=== PATIENT | male | born 1930 | race Caucasian/White ===

== ENCOUNTER 2019-07-21 05:47 | Emergency (ER) | payer BC ==
[~2019-07-21] VITALS: Ht 177.8 cm; Wt 90.7 kg
[2019-07-21 05:47] VITALS: BP_SYST 149
[2019-07-21] MEDS ORDERED: NACL 0.9% 1,000 ML IV ONE ×2 (06:00→07:30)
[2019-07-21 06:32] LABS: BASOPHILS % (AUTO) 0.2 % (0.0-2.0); EOSINOPHILS # (AUTO) 0.1 K/uL (0.0-0.4); EOSINOPHILS % (AUTO) 0.8 % (0.0-4.0); HEMATOCRIT 39.1 % (36-54); HEMOGLOBIN 12.8 g/dL (14.0-18.0); LYMPHOCYTES # (AUTO) 0.8 K/uL (1.0-5.5); LYMPHOCYTES % (AUTO) 7.5 % (20.5-51.5); MEAN CORPUSCULAR HEMOGLOBIN 31 pg (27-31); MEAN CORPUSCULAR HGB CONC 33 % (32-36); MEAN CORPUSCULAR VOLUME 94 fL (79.0-98.0); MONOCYTES % (AUTO) 8.7 % (1.7-9.3); NEUTROPHILS # (AUTO) 9.2 K/uL (1.8-7.7); NEUTROPHILS % (AUTO) 82.8 % (40.0-70.0); PLATELET COUNT (AUTO) 197 K/uL (130-430); RED BLOOD CELL COUNT(AUTO) 4.18 MIL/uL (4.2-6.2); RED CELL DISTRIBUTION WIDTH 14.2 % (9.0-15.0); WHITE BLOOD COUNT (AUTO) 11.1 K/uL (4.8-10.8)
[2019-07-21 06:52] LABS: INR 1.1 (0.80-1.20); PROTHROMBIN TIME 11.5 SECS (9.5-12.5)
[2019-07-21 06:55] LABS: ALANINE AMINOTRANSFERASE 26 U/L (12-78); ALBUMIN 3.9 g/dL (3.4-4.8); ANION GAP 7 (5-15); ASPARTATE AMINOTRANSFERASE 27 U/L (10-37); CALCIUM 9.3 mg/dL (8.4-11.0); CHLORIDE 101 mmol/L (98-107); CREATININE 1.05 mg/dL (0.55-1.30); GLUCOSE 124 mg/dL (70-99); POTASSIUM 4.2 mmol/L (3.5-5.1); SODIUM SERUM 139 mmol/L (136-145); TOTAL BILIRUBIN 0.3 mg/dL (0.0-1.0); UREA NITROGEN, BLOOD 24 mg/dL (8-21)
[2019-07-21 08:10] LABS: BILIRUBIN,URINE NEGATIVE (NEGATIVE); BLOOD, URINE NEGATIVE (NEGATIVE); CLARITY/URINE CLEAR (CLEAR); COLOR,URINE YELLOW (YELLOW); GLUCOSE,URINE NEGATIVE (NEGATIVE); KETONES,URINE NEGATIVE (NEGATIVE); LEUKOCYTE ESTERASE ,URINE NEGATIVE (NEGATIVE); NITRITE, URINE NEGATIVE (NEGATIVE); PH,URINE 5.5 (5.0-8.0); PROTEIN URINE NEGATIVE (NEGATIVE); UROBILINOGEN,URINE 0.2 (0.2-1.0)
[2019-07-21] MEDS ORDERED: fentaNYL CITRATE/PF 100 MCG/2 ML AMP IVP ONE ×2 (08:45→09:00)
[2019-07-21 15:55] VITALS: BP_SYST 143
== END 2019-07-21 15:55 ==
LOC: SED 05:47
DX: R53.1 Weakness (principal); Z86.73 Personal history of transient ischemic attack (TIA), and cerebral infarction without residual deficits; Z95.0 Presence of cardiac pacemaker; W07.XXXA Fall from chair, initial encounter; Y93.89 Activity, other specified; Y92.091 Bathroom in other non-institutional residence as the place of occurrence of the external cause; Y99.8 Other external cause status
CPT/HCPCS: 36415; 70450; 71045; 72100; 80053; 81003; 83605; 84484; 85025; 85610; 85730; 86710; 87040; 87081; 87086; 93005; 96374; 99285; J3010; J7030

== ENCOUNTER 2019-08-19 14:54 | Inpatient (IN) | payer BC ==
[~2019-08-19] VITALS: Ht 177.8 cm; Wt 88.0 kg
[2019-08-19 15:47] VITALS: BP_SYST 106
--- NOTE | 2019-08-19 15:51 | NUR ---
Patient to ER bed 08 to gown for evaluation. Side rails up.
--- NOTE | 2019-08-19 15:55 | NUR ---
ER Dr. Vega at bedside examining patient.
--- NOTE | 2019-08-19 15:55 | NUR ---
Patient brought to bed 8 in wheelchair. Patient fell out of bed this morning at [facility]. Patient denies loss of consciousness or hitting his head. Patient is experiencing lower back pain on his left side. Patient rates his pain a 2 out of 10. Will continue to monitor.
--- NOTE | 2019-08-19 16:02 | NUR ---
# 20 gauge angiocath placed to RAC. Use of asceptic technique. Opsite placed over site. Blood return noted. Blood, blood cultures, and lactic for lab drawn from site. Flushed with 10 cc of normal saline. No evidence of infiltration noted. Patient tolerated well.
[2019-08-19] MEDS ORDERED: AMLO5TAB4 PO (16:46)
[2019-08-19] MEDS ORDERED: LOSA25TA3 PO (16:46)
[2019-08-19] MEDS ORDERED: LIP40 PO (16:46)
[2019-08-19] MEDS ORDERED: METO25TA6 PO (16:46)
[2019-08-19] MEDS ORDERED: METF1000 PO (16:46)
[2019-08-19] MEDS ORDERED: ASPI-1153 PO (16:46)
[2019-08-19] MEDS ORDERED: ACET325T53 PO (16:47)
[2019-08-19] MEDS ORDERED: OMEG10006 PO (16:47)
--- NOTE | 2019-08-19 16:48 | NUR ---
Medication reconciliation completed with information provided by patient healthcare partners list. Any prior medication reconciliation on file was reviewed and corrected.
[2019-08-19 17:40] LABS: BASOPHILS % (AUTO) 0.2 % (0.0-2.0); HEMATOCRIT 34.2 % (36-54); HEMOGLOBIN 11.3 g/dL (14.0-18.0); LYMPHOCYTES # (AUTO) 0.6 K/uL (1.0-5.5); LYMPHOCYTES % (AUTO) 3.3 % (20.5-51.5); MEAN CORPUSCULAR HEMOGLOBIN 31 pg (27-31); MEAN CORPUSCULAR HGB CONC 33 % (32-36); MEAN CORPUSCULAR VOLUME 94 fL (79.0-98.0); MONOCYTES # (AUTO) 1.9 K/uL (0.0-1.0); NEUTROPHILS # (AUTO) 16.8 K/uL (1.8-7.7); NEUTROPHILS % (AUTO) 86.5 % (40.0-70.0); PLATELET COUNT (AUTO) 201 K/uL (130-430); RED BLOOD CELL COUNT(AUTO) 3.64 MIL/uL (4.2-6.2); RED CELL DISTRIBUTION WIDTH 14.7 % (9.0-15.0); WHITE BLOOD COUNT (AUTO) 19.4 K/uL (4.8-10.8)
[2019-08-19 17:50] LABS: ANION GAP 10 (5-15); CALCIUM 8.8 mg/dL (8.4-11.0); CHLORIDE 103 mmol/L (98-107); CREATININE 2.06 mg/dL (0.55-1.30); GLUCOSE 134 mg/dL (70-99); POTASSIUM 4.6 mmol/L (3.5-5.1); SODIUM SERUM 139 mmol/L (136-145); UREA NITROGEN, BLOOD 45 mg/dL (8-21)
[2019-08-19] MEDS ORDERED: cefTRIAXone 1 GM in D5W 50 ML IV ONE (18:00)
[2019-08-19 18:10] LABS: BILIRUBIN,URINE 1+ (NEGATIVE); CLARITY/URINE SL CLOUDY (CLEAR); COLOR,URINE YELLOW (YELLOW); GLUCOSE,URINE NEGATIVE (NEGATIVE); KETONES,URINE NEGATIVE (NEGATIVE); LEUKOCYTE ESTERASE ,URINE 1+ (NEGATIVE); NITRITE, URINE NEGATIVE (NEGATIVE); PH,URINE 5.5 (5.0-8.0); PROTEIN URINE TRACE (NEGATIVE)
--- NOTE | 2019-08-19 18:26 | NUR ---
Blood cultures drawn, prior to administration of antibiotic.
[2019-08-19] MEDS ORDERED: cefTRIAXone 1 GM VIAL ONE (18:33)
--- NOTE | 2019-08-19 18:45 | NUR ---
Patient's code status is DNR WITH SELECTIVE TREATMENT paperwork completed and placed in chart.
[2019-08-19 18:49] LABS: BLOOD, URINE TRACE (NEGATIVE)
[2019-08-19 18:54] LABS: BACTERIA,URINE MODERATE /HPF (None Seen)
[2019-08-19 18:56] LABS: MUCUS,URINE None Seen /LPF (None Seen)
[2019-08-19] MEDS ORDERED: NACL 0.9% 2,000 ML IV ONE (19:30)
--- NOTE | 2019-08-19 20:01 | NUR ---
Patient will be admitted to care of Dr. Copeland. Admitted to [facility] unit. Bed placement pending. Complete and up to date summary report printed. SBAR report to be given at bedside with opportunity for questions.
--- NOTE | 2019-08-19 20:44 | NUR ---
Son, Preston, went home. His phone number is .
--- NOTE | 2019-08-19 20:44 | NUR ---
Note nelida in EDM - 08/19/19 at 2213 by SDEDCJM 2 liters of normal saline infused. Patient reports he is feeling better. Appears to be more alert. Temperature now is 100.6. Will continue to monitor.
[2019-08-19] MEDS ORDERED: ACETAMINOPHEN 325 MG TABLET PO ONE (21:00)
[2019-08-19] MEDS ORDERED: ONDANSETRON HCL 4 MG/2 ML VIAL IVP ONE (21:00)
--- NOTE | 2019-08-19 21:00 | NUR ---
Patient awaiting bed placement. Temperature is 101.7 temporal. Cooling measures started. MD notified. Tylenol 650 mg ordered and carried out. will continue to monitor. Patient now showing Severe sepsis risk. notified.
--- NOTE | 2019-08-19 21:44 | NUR ---
2 liters of normal saline infused. Patient reports he is feeling better. Appears to be more alert. Temperature now is 100.6. Will continue to monitor.
[2019-08-19] MEDS ORDERED: ONDANSETRON HCL 4 MG/2 ML VIAL IVP PRN (22:15)
[2019-08-19] MEDS ORDERED: ACETAMINOPHEN 325 MG TABLET PO PRN ×2 (22:15)
[2019-08-19] MEDS ORDERED: ALBUTEROL SULFATE 0.083% 2.5 MG/3 ML VIAL.NEB INH PRN (22:15)
--- NOTE | 2019-08-19 22:43 | NUR ---
REPORT GIVEN TO BECKA SEAMAN. Transfer to [facility]. IV present no sign or symptom of infiltration. PATIENT WILL BE GOING TO [facility].
--- NOTE | 2019-08-19 22:54 | NUR ---
ADMISSION NOTE Received patient from ER via leticia, received report from BECKA Gutierrez. Patient admitted with diagnosis of UTI, back pain. Patient oriented to hospital routine, call light, toileting and safety-patient verbalized understanding.
[2019-08-19 23:03] VITALS: BP_SYST 95
[2019-08-19 23:43] VITALS: BP_SYST 95
[2019-08-20] VITALS (17 sets, daily range): BP systolic 72–130
[2019-08-20] MEDS: NACL 0.9% 1,000 ML IV SCH ×2 (00:13→11:25)
--- NOTE | 2019-08-20 00:35 | NUR ---
SLEEPING PT RESTING IN BED WITH EYES CLOSED, VISIBLE SYMMETRICAL RISE AND FALL OF CHEST TO ROOM AIR NOTED. NO SIGN OF PAIN OR DISCOMFORT. IVF INFUSING AT ORDERED RATE. SAFETY PRECAUTIONS ARE IN PLACE. WILL MONITOR.
--- NOTE | 2019-08-20 02:30 | NUR ---
RN ROUNDS: PT RESTING IN BED WITH EYES CLOSED, VISIBLE SYMMETRICAL RISE AND FALL OF CHEST TO ROOM AIR NOTED. NO SIGN OF PAIN OR DISCOMFORT. IVF INFUSING AT ORDERED RATE. SAFETY PRECAUTIONS ARE IN PLACE. WILL MONITOR.
--- NOTE | 2019-08-20 04:15 | NUR ---
DR. MOORE ROUNDS PT SEEN AND EXAMINED.
[2019-08-20] MEDS ORDERED: PIPERACILLIN/TAZO 3.375/DEX-IS 50 ML IV SCH (05:21)
--- NOTE | 2019-08-20 05:24 | NUR ---
INCONTINENCE CARE PT INCONTINENT OF URINE. INCONTINENCE CARE RENDERED. PT TOLERATED WELL. PT DENIES PAIN OR DISCOMFORT. ALL NEEDS MET. SAFETY MAINTAINED. WILL MONITOR.
--- NOTE | 2019-08-20 06:08 | NUR ---
ACCUCHECK/ZOSYN SCHEDULED ZOSYN ADMINISTERED, NO S/S OF ADVERSE REACTION NOTED. ACCUCHECK SHOWED BLOOD SUGAR OF 126, NO INSULIN COVERAGE INDICATED PER SLIDING SCALE.
[2019-08-20] MEDS ORDERED: PIPERACILLIN/TAZOBACTAM 3.375 GM/VIAL (ZOSYN) IV ONE (06:10)
[2019-08-20 06:27] LABS: BASOPHILS % (AUTO) 0.3 % (0.0-2.0); HEMATOCRIT 28.3 % (36-54); HEMOGLOBIN 9.3 g/dL (14.0-18.0); LYMPHOCYTES # (AUTO) 0.3 K/uL (1.0-5.5); LYMPHOCYTES % (AUTO) 1.8 % (20.5-51.5); MEAN CORPUSCULAR HEMOGLOBIN 31 pg (27-31); MEAN CORPUSCULAR HGB CONC 33 % (32-36); MEAN CORPUSCULAR VOLUME 94 fL (79.0-98.0); MONOCYTES # (AUTO) 1.2 K/uL (0.0-1.0); MONOCYTES % (AUTO) 6.4 % (1.7-9.3); NEUTROPHILS # (AUTO) 17.6 K/uL (1.8-7.7); NEUTROPHILS % (AUTO) 91.5 % (40.0-70.0); PLATELET COUNT (AUTO) 145 K/uL (130-430); RED BLOOD CELL COUNT(AUTO) 3.02 MIL/uL (4.2-6.2); RED CELL DISTRIBUTION WIDTH 14.7 % (9.0-15.0); WHITE BLOOD COUNT (AUTO) 19.2 K/uL (4.8-10.8)
--- NOTE | 2019-08-20 06:33 | NUR ---
CLOSING NOTE PT RESTING IN BED, NO S/S OF DISTRESS, BREATHING IS EVEN AND UNLABORED TO ROOM AIR. IVF INFUSING AT ORDERED RATE, NO S/S OF INFILTRATION AT IV SITE. PT DENIES PAIN OR DISCOMFORT. ALL NEEDS MET THROUGHOUT SHIFT. SAFETY MAINTAINED. WILL CONTINUE TO MONITOR UNTIL PT CARE IS ENDORSED TO DAY SHIFT RN.
[2019-08-20 06:39] LABS: ALANINE AMINOTRANSFERASE 25 U/L (12-78); ALBUMIN 2.4 g/dL (3.4-4.8); ANION GAP 10 (5-15); ASPARTATE AMINOTRANSFERASE 23 U/L (10-37); CALCIUM 8.4 mg/dL (8.4-11.0); CHLORIDE 105 mmol/L (98-107); GLUCOSE 139 mg/dL (70-99); POTASSIUM 4.2 mmol/L (3.5-5.1); SODIUM SERUM 138 mmol/L (136-145); TOTAL BILIRUBIN 0.4 mg/dL (0.0-1.0); UREA NITROGEN, BLOOD 41 mg/dL (8-21)
--- NOTE | 2019-08-20 07:15 | NUR ---
OPENING NOTES PT RESTING IN BED, CHEST RISE AND FALL NOTED. NO ACUTE DISTRESS NOTED. NONLABORED BREATHING NOTED ON ROOM AIR. IV LINES INTACT AND PATENT, NO SIGNS OF INFILTRATION NOTED. PT EASY TO WAKE UP, DENIES PAIN AT THIS TIME. BED LOCKED AND IN LOWEST POSITION. ALL NEEDS MET. CALL LIGHT IN REACH. CONTINUE TO MONITOR.
--- NOTE | 2019-08-20 08:30 | NUR ---
NASAL CANNULA PT ON NASAL CANNULA 2LPM ADMINISTERED BY RT. TOLERATING WELL, O2 AT 97%. ALL NEEDS MET. CALL LIGHT IN REACH. CONTINUE TO MONITOR.
[2019-08-20] MEDS: ASPIRIN 81 MG TABLET(ECOTRIN) PO SCH ×2 (09:00→09:15)
[2019-08-20] MEDS: amLODIPine BESYLATE 5 MG TABLET PO SCH ×2 (09:00→09:15)
[2019-08-20] MEDS ORDERED: cefTRIAXone 1 GM IVPB PREMIX 50 ML IV SCH (09:00)
[2019-08-20] MEDS: METOPROLOL TARTRATE 25 MG TABLET PO SCH ×3 (09:00→20:21)
--- NOTE | 2019-08-20 09:12 | NUR ---
Nutrition Update Dieudonne Scale 18 noted. Pt admitted for UTI/back pain. Diet: [facility] BMI: 28 kg/m2 RD to follow per nutrition care standards.
--- NOTE | 2019-08-20 09:30 | NUR ---
MEDS/ UPDATE ON PT PT IS ANSWERING SOME QUESTIONS, BUT NOT ANSWERING APPROPRIATELY. PT OPENING EYES. WILL NOT STATE NAME AND . VITAL SIGNS STABLE. ATTEMPTED TO PUT FOOD IN MOUTH, PT POCKETING FOOD, WILL NOT TAKE MEDICATIONS. PAGED . AWAITING CALL BACK.
--- NOTE | 2019-08-20 09:48 | NUR ---
ASSESSED ATTEMPTED TO GIVE MEDICATIONS TO PT, STILL UNABLE TO SWALLOW. EDUCATED PT, VERBALIZED UNDERSTANDING, BUT STILL UNABLE TO SWALLOW MEDS. ATTEMPTED TO FEED PT, BUT PT POCKETING FOOD. CHECKED BLOOD SUGAR. BLOOD SUGAR IS 168 MG/DL. PT ABLE TO STATE NAME, UNABLE TO STATE . VITAL SIGNS STABLE. AWAITING CALL BACK FROM .
--- NOTE | 2019-08-20 10:15 | NUR ---
SPOKE TO DR. MCKEON AT NURSE'S STATION. UPDATED MD ON PT'S STATUS. STATED THAT HE WILL SEE PT AT BEDSIDE. Addendum: 08/20/19 at 1050 by Little Weston RN UPDATED DR. MCKEON THAT PT IS ANSWERING SOME QUESTIONS, BUT WILL ANSWER INAPPROPRIATELY AT TIMES. PT IS POCKETING FOOD AND UNABLE TO SWALLOW MEDICATIONS. UPDATED DR. MCKEON ON PT'S LATEST LAB RESULTS WELL.
[2019-08-20] MEDS: INSULIN REGULAR, HUMAN 100 UNITS/ML, 10 ML VIAL (humuLIN R) SUBCUT PRN ×3 (11:54→20:51)
--- NOTE | 2019-08-20 11:55 | NUR ---
ACCUCHECK DONE ACCUCHECK DONE, EDUCATION DONE, TOLERATED WELL. RESULT 158 MG/DL. HELD INSULIN DUE TO PT BEING UNABLE TO SWALLOW FOOD. PT ANSWERING SOME QUESTIONS APPROPRIATELY AND NOT ANSWERING SOME. STATES NAME, BUT DOES NOT RESPOND TO STATING . DR. ASHLEY CALLED FOR CONSULT.
--- NOTE | 2019-08-20 11:57 | NUR ---
CONSULT: CONSULT CALLED FOR DR. LLOYD I SPOKE WITH BORA FROM EXCHANGE REASON FOR CONSULT: SEPSIS REQUESTING CONSULT: DR. MCKEON FLOOR SCRAPER PHONE NUMBER: [phone]
[2019-08-20] MEDS ORDERED: VANCOMYCIN HCL 1,000 MG in NS 250 ML IV SCH (13:00)
--- NOTE | 2019-08-20 13:14 | NUR ---
ROUNDS/RE-ASSESS PT AWAKE. PT LOCALIZING TO PAIN, LIFTS UP ARM. ANSWERS ALL QUESTIONS WITH "NO." WHEN ASKED TO STATE NAME AND , CONTINUES TO ANSWER "NO." VITAL SIGNS STABLE. WHEN ASKED TO OPEN EYES, PT CONTINUE TO SAY "NO." CALL LIGHT IN REACH. CONTINUE TO MONITOR.
--- NOTE | 2019-08-20 14:01 | NUR ---
ROUTINE MEDS ROUTINE MEDS ADMINISTERED ORDERED PER MD, EDUCATION GIVEN, TOLERATED WELL. NO ACUTE DISTRESS NOTED. ALL NEEDS MET. CALL LIGHT IN REACH. PT LOCALIZES TO PAIN. PT STATES NAME, BUT SPEECH IS GARBLED. WILL NOT ANSWER DATE OF . PT CONTINUES TO NOT OPEN HIS EYES. VITAL SIGNS STABLE. CONTINUE TO MONITOR.
[2019-08-20] MEDS: PIPERACILLIN/TAZO 2.25G/DEX-IS 50 ML IV SCH ×2 (15:09→22:06)
[2019-08-20] MEDS ORDERED: NACL 0.9% 1,000 ML IV ONE (15:30)
--- NOTE | 2019-08-20 15:33 | NUR ---
ORDERS FOR TRANSFER TO ICU PT AWAKE, BUT LETHARGIC. RESPONDING TO QUESTIONS INAPPROPRIATELY. SPEECH GARBLED. DOES NOT OPEN EYES ON COMMAND. LOCALIZES TO PAIN. PT HAS DECREASED BLOOD PRESSURE, ON LEFT ARM 77/34, ON RIGHT ARM 80/47. SPOKE TO DR. MCKEON, RECEIVED ORDERS TO ADMINISTER 1L OF NORMAL SALINE AND TRANSFER PT TO ICU. ORDERS VERIFIED AND CARRIED OUT. CONTINUE TO MONITOR.
--- NOTE | 2019-08-20 16:08 | NUR ---
TRANSFER TO ICU GAVE REPORT TO BECKA HOUGH. MOVED TO ICU ROOM 3. SPOKE TO PT'S SON, JO AND UPDATED HIM ON PT'S STATUS AND TRANSFER TO ICU.
--- NOTE | 2019-08-20 16:09 | NUR ---
Opening Note Patient received from information operator and placed in ICU 3. 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 Patient BP upon arrival is 72/32. Patient currently receiving 1L NS, BP at this time 96/47. Patient on 2L oxygen via nasal cannula breathing evenly and unlabored. Patient lethargic but is able to respond to simple commands. Patient with peripheral IV's. Patient incontinent. Safety precautions enforced.
--- NOTE | 2019-08-20 16:19 | NUR ---
PAGED PAGED MARYLIN BLAND AT [phone] SPOKE WITH LIAM.
--- NOTE | 2019-08-20 16:54 | NUR ---
CONSULTATION PAGED: PRIORITY: ROUTINE REASON FOR CONSULTATION:HYPOTENSION WAS CONSULT CALLED:Y PERSON WHO WAS NOTIFIED:[facility]CH[facility] CONSULTING PHYSICIAN:MILAD BENSON IMPROVEMENT MANAGER SPECIALTY:PULMARY IMPROVEMENT MANAGER PHONE NUMBER:[phone] CELL NUMBER OF MILAD BENSON
--- NOTE | 2019-08-20 17:04 | NUR ---
BEAR CATH: # 16 FR Bear catheter with 10 cc bulb inserted with use of sterile technique. Bulb inflated with 10 cc sterile water. Immediate return of 20 cc sujit urine noted. Bedside drainage bag placed below level of bladder. Pt tolerated procedure well.
[2019-08-20] MEDS ORDERED: ALBUMIN HUMAN 5% 500 ML IV ONE (18:15)
--- NOTE | 2019-08-20 19:35 | NUR ---
Opening Note Patient received via SBAR, connected to electronic device monitor with 1st degree block; patient with pacemaker. Patient BP upon arrival is 111/48. Patient currently receiving NS, levophed @ 2mcg/min. Patient on 2L oxygen via nasal cannula breathing evenly and unlabored. Patient is able to respond to commands and is aware of person, place, time and situation. Patient with peripheral IV's. Patient incontinent. Safety precautions enforced.
--- NOTE | 2019-08-20 19:40 | NUR ---
Closing Note Patient endorsed to manufacturing shift supervisor RN using SBAR format. Patient in no signs of distress at this time.
[2019-08-20] MEDS ORDERED: LEVOFLOXACIN 500 MG/D5W 100 ML IV SCH (20:00)
[2019-08-20] MEDS: ATORVASTATIN 20 MG TABLET PO SCH (20:38)
[2019-08-21] VITALS (24 sets, daily range): BP systolic 94–146
[2019-08-21] MEDS: NACL 0.9% 1,000 ML IV SCH ×3 (03:02→20:08)
--- NOTE | 2019-08-21 05:30 | NUR ---
CHG BATH Patient received CHG bath, new gown, new linens, a teeth brushing with mouth wash, and repositioning.
[2019-08-21] MEDS: PIPERACILLIN/TAZO 2.25G/DEX-IS 50 ML IV SCH ×3 (05:50→22:40)
--- NOTE | 2019-08-21 07:26 | NUR ---
Closing Note Patient endorsed to night filler RN using SBAR format. Patient in no signs of distress at this time.
--- NOTE | 2019-08-21 07:33 | NUR ---
Opening Note Patient received resting in bed at this time and is connected to social director. Patient more awake and is able to respond to commands. Patient on 2L oxygen via nasal cannula breathing evenly and unlabored, no signs of distress noted. Patient has multiple peripheral IV receiving fluids. Patient has a bhat catheter draining urine. Safety precautions enforced.
--- NOTE | 2019-08-21 08:50 | NUR ---
RN Update Patient complaining of chills and is currently shivering. Patient heart rate increased to the 130s. Patient temperature 97.4 at this time. Patient able to respond to questions and able to follow commands. Paged MD to report patient condition change.
[2019-08-21] MEDS: METOPROLOL TARTRATE 25 MG TABLET PO SCH ×2 (09:00→20:48)
[2019-08-21] MEDS: amLODIPine BESYLATE 5 MG TABLET PO SCH (09:00)
[2019-08-21] MEDS: ASPIRIN 81 MG TABLET(ECOTRIN) PO SCH (09:00)
[2019-08-21] MEDS ORDERED: ALBUMIN HUMAN 5% 250 ML IV ONE (09:15)
--- NOTE | 2019-08-21 09:15 | NUR ---
MD Rounds Dr. Vega at bedside for examination. New orders received.
--- NOTE | 2019-08-21 09:30 | NUR ---
MD Rounds Dr. Copeland at bedside for examination. No new orders received.
[2019-08-21 10:02] LABS: ANION GAP 16 (5-15); CALCIUM 8.5 mg/dL (8.4-11.0); CHLORIDE 108 mmol/L (98-107); CREATININE 2.39 mg/dL (0.55-1.30); GLUCOSE 128 mg/dL (70-99); POTASSIUM 3.8 mmol/L (3.5-5.1); SODIUM SERUM 143 mmol/L (136-145); UREA NITROGEN, BLOOD 48 mg/dL (8-21)
[2019-08-21 10:08] LABS: ALANINE AMINOTRANSFERASE 39 U/L (12-78); ALBUMIN 2.4 g/dL (3.4-4.8); TOTAL BILIRUBIN 0.5 mg/dL (0.0-1.0)
[2019-08-21 10:14] LABS: ASPARTATE AMINOTRANSFERASE 41 U/L (10-37)
--- NOTE | 2019-08-21 11:15 | NUR ---
MD Rounds Dr. Domingo at bedside for examination. New orders received. MD updated family regarding patient condition.
[2019-08-21 11:16] LABS: HEMATOCRIT 31.3 % (36-54); HEMOGLOBIN 10.1 g/dL (14.0-18.0); MEAN CORPUSCULAR HEMOGLOBIN 31 pg (27-31); MEAN CORPUSCULAR HGB CONC 32 % (32-36); MEAN CORPUSCULAR VOLUME 94 fL (79.0-98.0); PLATELET COUNT (AUTO) 118 K/uL (130-430); RED BLOOD CELL COUNT(AUTO) 3.32 MIL/uL (4.2-6.2); RED CELL DISTRIBUTION WIDTH 15.3 % (9.0-15.0)
[2019-08-21 11:17] LABS: BASOPHILS % (AUTO) 0.1 % (0.0-2.0); EOSINOPHILS % (AUTO) 0.5 % (0.0-4.0); LYMPHOCYTES # (AUTO) 0.1 K/uL (1.0-5.5); LYMPHOCYTES % (AUTO) 0.9 % (20.5-51.5); MONOCYTES % (AUTO) 0.4 % (1.7-9.3); NEUTROPHILS # (AUTO) 5.9 K/uL (1.8-7.7); NEUTROPHILS % (AUTO) 98.1 % (40.0-70.0)
--- NOTE | 2019-08-21 11:20 | NUR ---
Reported lab values to Dr. Domingo. modified antibiotic orders.
--- NOTE | 2019-08-21 11:30 | NUR ---
ODD TICKET CLERK met with Pt. and family at bedside, for ICU News Writer contact and tentative DCPA ([facility]). Daughter Mabel Winn [phone] , consent was given to speak with family present. Person to notify and DPAO is reportedly son Preston Holland who resides locally. Pt. is currently a resident at [facility] assisted living in [place], he has been at this facility since 03/2019, client would prefer to return to this. Pt utilizes an electric scooter for mobility, and is reportedly is moderate assists with his ADLs. [facility] [place], however, he was residing home prior to transfer to [facility]. Pt. has [facility]- [facility] is managing Pt. care, family is aware of this matter. Tentative DC plan is to return to [facility]. No further inquiry at this time.
[2019-08-21] MEDS: LEVOFLOXACIN 250 MG/D5W 50 ML IV SCH (11:51)
[2019-08-21] MEDS: NOREPINEPHRINE BITARTRATE 4 MG in D5W 246 ML IV PRN ×2 (15:22→20:20)
--- NOTE | 2019-08-21 19:16 | NUR ---
ORDERS CALLED DR. LLOYD EXCHANGE DIALED: [phone] SPOKE TO: DIVYA
--- NOTE | 2019-08-21 19:32 | NUR ---
Closing Note Patient endorsed to retail shift leader RN using SBAR format. Patient is responsive but noted to be weak. Safety precautions enforced.
--- NOTE | 2019-08-21 19:50 | NUR ---
Opening Note Pt in bed alert but slightly confused. Pt ST on the monitor. On 4L O2, no s/s of distress noted. Pt has IVF and levophed infusing through peripheral IV sites. No s/s of infiltration noted. Pt tolerating well. BP stable. Pt has bhat catheter in place, draining minimal urine to gravity. Safety round completed. Will continue to monitor.
--- NOTE | 2019-08-21 20:17 | NUR ---
CONSULT CALLED [facility]CHANGE DIALED: [phone] SPOKE TO: SACHA
--- NOTE | 2019-08-21 20:20 | NUR ---
MD Called Spoke w/ Dr. Lawler regarding new MD consult. Made aware of Pt status, HR and BP. No new orders received. Will continue to monitor.
--- NOTE | 2019-08-21 20:38 | NUR ---
ORDERS FOLLOW UP DR. LLOYD DIALED: [phone] SPOKE TO: SAURABH
--- NOTE | 2019-08-21 20:47 | NUR ---
DR GABINO Domingo notified regarding the need for increase in IV fluids due to sepsis. Orders received. Increase NS to 100 ML/HR.
[2019-08-21] MEDS: ATORVASTATIN 20 MG TABLET PO SCH (20:56)
[2019-08-21] MEDS: INSULIN REGULAR, HUMAN 100 UNITS/ML, 10 ML VIAL (humuLIN R) SUBCUT PRN (21:02)
[2019-08-22] VITALS (26 sets, daily range): BP systolic 85–125
--- NOTE | 2019-08-22 01:20 | NUR ---
RN Round Pt in bed, asleep. No s/s of distress noted. Will continue to monitor.
--- NOTE | 2019-08-22 05:15 | NUR ---
RN Rounds Pt in bed asleep. No s/s of distress noted. Pt BP stable, levophed infusing @2mcg/min. Will continue to monitor.
--- NOTE | 2019-08-22 06:10 | NUR ---
CHG CHG bath given and linens changed. Pt tolerated well, but became SOB towards the end. PRN breathing Tx given. Will continue to monitor.
[2019-08-22] MEDS: PIPERACILLIN/TAZO 2.25G/DEX-IS 50 ML IV SCH ×2 (06:53→14:20)
--- NOTE | 2019-08-22 07:22 | NUR ---
Endorsement Report given to oncoming RN at bedside via SBAR approach. No s/s of distress noted. Pt AAO.
[2019-08-22] MEDS: amLODIPine BESYLATE 5 MG TABLET PO SCH (09:00)
[2019-08-22] MEDS: METOPROLOL TARTRATE 25 MG TABLET PO SCH ×2 (09:00→19:30)
[2019-08-22] MEDS: ASPIRIN 81 MG TABLET(ECOTRIN) PO SCH (09:15)
[2019-08-22] MEDS: LEVOFLOXACIN 250 MG/D5W 50 ML IV SCH (09:15)
[2019-08-22 09:29] LABS: HEMATOCRIT 27.6 % (36-54); HEMOGLOBIN 8.8 g/dL (14.0-18.0); MEAN CORPUSCULAR HEMOGLOBIN 30 pg (27-31); MEAN CORPUSCULAR HGB CONC 32 % (32-36); MEAN CORPUSCULAR VOLUME 94 fL (79.0-98.0); PLATELET COUNT (AUTO) 111 K/uL (130-430); RED BLOOD CELL COUNT(AUTO) 2.94 MIL/uL (4.2-6.2); RED CELL DISTRIBUTION WIDTH 15.6 % (9.0-15.0); WHITE BLOOD COUNT (AUTO) 27.4 K/uL (4.8-10.8)
[2019-08-22 09:37] LABS: ANION GAP 13 (5-15); CALCIUM 8.3 mg/dL (8.4-11.0); CHLORIDE 106 mmol/L (98-107); CREATININE 3.22 mg/dL (0.55-1.30); GLUCOSE 146 mg/dL (70-99); POTASSIUM 3.7 mmol/L (3.5-5.1); SODIUM SERUM 138 mmol/L (136-145); UREA NITROGEN, BLOOD 54 mg/dL (8-21)
[2019-08-22 09:43] LABS: INR 1.5 (0.80-1.20); PROTHROMBIN TIME 14.8 SECS (9.5-12.5)
--- NOTE | 2019-08-22 10:00 | NUR ---
Paged for Dr. Ochoa about EF 25-50%, spoke with Crystal to leave message/page.
[2019-08-22 10:40] LABS: BAND % (MANUAL) 20 % (0-6); BASOPHILS % (MANUAL) 0 % (0-2); EOSINOPHILS % (MANUAL) 0 % (0-7); LYMPHOCYTES % (MANUAL) 1 % (20-46); MONOCYTES % (MANUAL) 2 % (0-11)
--- NOTE | 2019-08-22 10:50 | NUR ---
0730-Received patient awake alert oriented. With ongoing IVF NS at 50 ml/hr and levophed drip at 2mcq/min. BP 110/42 On O2 4 liters nasal cannula O2 saturation 100% HOB at 30 degrees. With bhat catheter to gravity drainage with clear yellow output and securement device. With blanchable redness to sacral area and left buttock ecchymosis. Skin moisture barrier cream placed with absorbent pad in place. Fall precaution done. Call light within reach. 0810-Made rounds with Dr Yuan and Dr Copeland at the bedside. Was notified of patients condition, urine output, BP with new orders carried out 0822-BP 95/58 Levophed drip off continue to monitor 0900-BP 103/59 Continue to monitor 1030-BP 85/70 Levophed drip restarted at 2mcq/min Continue to monitor. O2 saturation 100% on O2 2 liters nasal cannula 1050-Dr Yuan was notified of patients lab results. No new orders. Paged to Min and Dr Domingo awaiting reply. BP 100/55
--- NOTE | 2019-08-22 11:17 | NUR ---
Page out to Dr. Copeland, spoke with exchange Rupal.
--- NOTE | 2019-08-22 11:30 | NUR ---
Made rounds with Dr Ochoa plan of care discussed with patient verbalized understanding
[2019-08-22] MEDS: INSULIN REGULAR, HUMAN 100 UNITS/ML, 10 ML VIAL (humuLIN R) SUBCUT PRN ×2 (11:49→16:36)
[2019-08-22] MEDS: NACL 0.9% 1,000 ML IV SCH (14:23)
--- NOTE | 2019-08-22 14:35 | NUR ---
Dietitian Recommendations * Recommend [facility] diet w/ Glucedson TID (ONS provides an additional 660 kcal/day, 30 gm protein/day) LAKESHA ANDREWS Please refer to Nutrition Assessment for details. Addendum: 08/22/19 at [address] Amended: Links added.
--- NOTE | 2019-08-22 15:21 | NUR ---
Spoke with Dr Copeland notified of lab results today, Ecoli,ESBL and MDRO in blood and urine. Dr Domingo was paged awaiting reply. Spoke with Mari (exchange) regarding consult for Dr Leiva for BUN [address] Copeland was notified patient able to swallow soft food only. With new orders for swallow eval. Addendum: 08/22/19 at 1546 by Agueda Jenkins RN Spoke with Dr Copeland notified of lab results today, Ecoli,ESBL and MDRO in blood and urine. Dr Domingo was paged awaiting reply. Spoke with Mari (exchange) regarding consult for Dr Leiva for BUN [address] Copeland was notified patient able to swallow soft food only. With new orders for swallow eval. Contact precaution done
--- NOTE | 2019-08-22 15:23 | NUR ---
Contacted speech therapist for eval, left message.
--- NOTE | 2019-08-22 16:37 | NUR ---
Spoke with Dr Leiva and notified of patient condition. UA sent as ordered.
--- NOTE | 2019-08-22 16:39 | NUR ---
Dr Domingo was notified of urine and blood culture results. Awaiting new orders
[2019-08-22 16:47] LABS: BILIRUBIN,URINE NEGATIVE (NEGATIVE); BLOOD, URINE 2+ (NEGATIVE); CLARITY/URINE CLEAR (CLEAR); COLOR,URINE YELLOW (YELLOW); GLUCOSE,URINE NEGATIVE (NEGATIVE); KETONES,URINE NEGATIVE (NEGATIVE); NITRITE, URINE NEGATIVE (NEGATIVE); PROTEIN URINE 1+ (NEGATIVE); UROBILINOGEN,URINE 0.2 (0.2-1.0)
[2019-08-22 17:06] LABS: LEUKOCYTE ESTERASE ,URINE TRACE (NEGATIVE)
[2019-08-22 17:07] LABS: BACTERIA,URINE FEW /HPF (None Seen); MUCUS,URINE None Seen /LPF (None Seen); WBC,URINE NONE SEEN /HPF (0-3)
[2019-08-22] MEDS: NOREPINEPHRINE BITARTRATE 4 MG in D5W 246 ML IV PRN (17:37)
--- NOTE | 2019-08-22 18:36 | NUR ---
With right PICC line in place dressing clean dry intact. Right AC and right forearm peripheral IV was discontinued catheter intact
--- NOTE | 2019-08-22 19:02 | NUR ---
Right PICC line dressing clean dry intact. Repositioned every 2 hours. Oral care done. Brushed teeth. Skin moisture barrier cream placed to perisacral area with absorbent pad in place. O2 saturation 100% On O2 2 liters nasal cannula With ongoing Renal US as ordered. Report given to Jarrod JOVEL at the bedside
--- NOTE | 2019-08-22 19:30 | NUR ---
Opening Note Patient report recieved via SBAR communiation from endorsing RN
--- NOTE | 2019-08-22 20:00 | NUR ---
PM Assessment Patient is alert and oriented times 3. Patient on 2L O2 via NC; breath sounds are diminished throughout; weak, productive cough present. S1, S2 heart sounds with regular rate, Pace maker present, 1st degree hb on monitor, +2 pitting edema noted on lower extremities; Patient on levophed drip at 2mcg/min. Bowel sounds are active and present in all quadrants. Pablo catheter draining to gravity, securement device in place, yellow urine present in collection bag. Skin is warm, dry; blanchable redness on sacrum and ecchymosis on left hip. Bed is in lowest position, bed alarm on, call light within reach. Addendum: 08/23/19 at 0216 by Jarrod Lowe RN PICC present in right upper arm, area/dressing is clean, dry, and intact.
[2019-08-22] MEDS: MEROPENEM 500 MG IVPB PREMIX 50 ML IV SCH (20:17)
[2019-08-22] MEDS: ATORVASTATIN 20 MG TABLET PO SCH (20:33)
--- NOTE | 2019-08-22 23:00 | NUR ---
Nursing Note Patient repositioned in bed, patient tolerated well
[2019-08-23] VITALS (25 sets, daily range): BP systolic 98–126
--- NOTE | 2019-08-23 01:00 | NUR ---
Nursing Note Patient repositioned in bed, patient given oral care as requested. Patient tolerated well
--- NOTE | 2019-08-23 03:00 | NUR ---
Nursing Note Patient repositioned in bed as requested, patient suctioned via oral cavity, small amount of sputum removed, patient tolerated well.
--- NOTE | 2019-08-23 05:00 | NUR ---
Nursing Note Patient given CHG bath, linens changed, gown changed, patient repositioned in bed. Patient tolerated well
[2019-08-23] MEDS: NACL 0.9% 1,000 ML IV SCH (06:23)
[2019-08-23 06:26] LABS: BASOPHILS % (AUTO) 0.1 % (0.0-2.0); EOSINOPHILS # (AUTO) 0.1 K/uL (0.0-0.4); EOSINOPHILS % (AUTO) 0.4 % (0.0-4.0); HEMATOCRIT 30.1 % (36-54); HEMOGLOBIN 9.7 g/dL (14.0-18.0); LYMPHOCYTES # (AUTO) 0.3 K/uL (1.0-5.5); LYMPHOCYTES % (AUTO) 1.1 % (20.5-51.5); MEAN CORPUSCULAR HEMOGLOBIN 30 pg (27-31); MEAN CORPUSCULAR HGB CONC 32 % (32-36); MEAN CORPUSCULAR VOLUME 94 fL (79.0-98.0); MONOCYTES # (AUTO) 0.8 K/uL (0.0-1.0); MONOCYTES % (AUTO) 3.3 % (1.7-9.3); NEUTROPHILS # (AUTO) 23.6 K/uL (1.8-7.7); NEUTROPHILS % (AUTO) 95.1 % (40.0-70.0); PLATELET COUNT (AUTO) 115 K/uL (130-430); RED BLOOD CELL COUNT(AUTO) 3.22 MIL/uL (4.2-6.2); RED CELL DISTRIBUTION WIDTH 15.7 % (9.0-15.0); WHITE BLOOD COUNT (AUTO) 24.8 K/uL (4.8-10.8)
[2019-08-23 06:56] LABS: ALANINE AMINOTRANSFERASE 92 U/L (12-78); ALBUMIN 2.1 g/dL (3.4-4.8); ANION GAP 12 (5-15); ASPARTATE AMINOTRANSFERASE 85 U/L (10-37); CALCIUM 8.5 mg/dL (8.4-11.0); CHLORIDE 108 mmol/L (98-107); GLUCOSE 124 mg/dL (70-99); POTASSIUM 3.7 mmol/L (3.5-5.1); SODIUM SERUM 139 mmol/L (136-145); TOTAL BILIRUBIN 0.5 mg/dL (0.0-1.0); UREA NITROGEN, BLOOD 63 mg/dL (8-21)
--- NOTE | 2019-08-23 07:10 | NUR ---
Closing Note Patient report given to oncoming RN via SBAR communication
--- NOTE | 2019-08-23 07:10 | NUR ---
Shift report received from daniel Aragon RN using SBAR.
--- NOTE | 2019-08-23 08:30 | NUR ---
Dr Yuan bedside. Updated on current labs and condition.
--- NOTE | 2019-08-23 08:45 | NUR ---
AM ASSESSMENT PT A/O x 4, Afib on monitor, noted cloudy urine in Pablo. PT had no complains of pain or discomfort. Pt stated he is unable to swallow solid food. Ordered Glucerna drink and pt was able to tolerate without aspirating. NS running at 50cc/hr. PICC line clear and noted blood return. No signs of infection. Bed locked and in lowest position with call light in hand.
[2019-08-23] MEDS: ASPIRIN 81 MG TABLET(ECOTRIN) PO SCH (08:58)
[2019-08-23] MEDS: MEROPENEM 500 MG IVPB PREMIX 50 ML IV SCH ×2 (08:59→20:34)
[2019-08-23] MEDS: amLODIPine BESYLATE 5 MG TABLET PO SCH (08:59)
[2019-08-23] MEDS: METOPROLOL TARTRATE 25 MG TABLET PO SCH ×2 (08:59→20:34)
--- NOTE | 2019-08-23 09:00 | NUR ---
AM Oral care provided. Pt tolerated well.
--- NOTE | 2019-08-23 09:40 | NUR ---
Dr Leiva [facility]. Urology consult given with CT w/o contrast. Addendum: 08/23/19 at 1113 by Eric Carney RN Second sentence should state Urology consult given along with orders for CT W/O contrast.
--- NOTE | 2019-08-23 10:00 | NUR ---
NPO Placed PT on NPO pending swallow evaluation. Pt expressed he is having a hard time swallowing food.
--- NOTE | 2019-08-23 10:30 | NUR ---
Consult Called exchange per Crystal for urology consult. Physicians Furniture Repairer MARNI called stating his group does not cover HCP.
--- NOTE | 2019-08-23 10:40 | NUR ---
Paged Dr Rodriguez for urology consult recommendations.
--- NOTE | 2019-08-23 10:48 | NUR ---
Paged Dr. Rodriguez for orders. Spoke with exchange.
--- NOTE | 2019-08-23 10:51 | NUR ---
Dr Rodriguez called back. Provided report of PT. stated he will find out which group is covered under HCP and will callback.
--- NOTE | 2019-08-23 11:20 | NUR ---
Dr Michael garcia. Provided status update and received consult Physician's name for urology.
--- NOTE | 2019-08-23 11:21 | NUR ---
New consult paged to Dr. Rios, spoke with exchange.
--- NOTE | 2019-08-23 11:30 | NUR ---
Called Jeanette Hanna for urology consult. Left message on the answering machine for consult. [phone]
--- NOTE | 2019-08-23 12:41 | NUR ---
Dr Jimenez called back, provided update on pt. stated to call back after CT Scan.
--- NOTE | 2019-08-23 13:15 | NUR ---
CT Uneventful transfer to radiology dept. and back. PT on night monitor and 2L O2. Pt tolerated well.
--- NOTE | 2019-08-23 14:10 | NUR ---
Swallow Evaluation Brianne bedside to perform swallow evaluation.
--- NOTE | 2019-08-23 14:15 | NUR ---
Called Dr Jimenez with preliminary results for CT scan. recommended surgery for stent placement and removal of renal stones. stated he will call back and set up for surgery.
--- NOTE | 2019-08-23 14:30 | NUR ---
Informed PT of surgical intervention recommended by Dr Jimenez. Pt stated he did not want to have surgery or any surgical interventions that will prolong his life.
--- NOTE | 2019-08-23 14:41 | NUR ---
S.T. SWALLOW EVAL SWALLOW EVAL PERFORMED PARTIALLY. PT PRESENTS W/ FUNCTIONAL OROPHARYNGEAL SWALLOW FOR THIN LIQUIDS. ONLY THIN LIQUID WAS GIVEN. EVAL STOPPED PER PHYSICIAN D/T POSSIBLE PENDING SURGERY. REC: OK FOR CLEAR LIQUID DIET AND THIN LIQUIDS WHEN MEDICALLY CLEARED. CONSIDER F/U SWALLOW EVAL FOR DIET UPGRADE. NURSES ITALO AND NIMO NOTIFIED.
--- NOTE | 2019-08-23 15:45 | NUR ---
Dr Jimenez bedside with pt and pt son on telephone. Dr Jimenez explained in detail for surgical intervention and explained thoroughly for informed consent, risks, and possible outcomes. PT and son stated they understood the risks and noted they do not want the surgical intervention. Dr. Jimenez reiterated multiple times of the potential for if the surgical intervention is not completed.
--- NOTE | 2019-08-23 19:20 | NUR ---
OPENING NOTE SBAR REPORT RECEIVED BY ITALO JOVEL. CARE ASSUMED. PT LAYING IN BED ANO X4. PT ON 2L NASAL CANNULA. O2 SATURATION 100%. PT ATRIAL FIBRILLATION ON MONITOR. PT HAS RIGHT UPPER EXTREMITY PICC LINE RUNNING NORMAL SALINE AT 50 ML/HR. RADIAL AND PEDAL PULSES NORMAL. 1+ PITTING EDEMA TO BILATERAL LOWER EXTREMITIES. ABDOMEN SOFT NON DISTENDED. BOWEL SOUNDS ACTIVE. PT NPO. PT REFUSED SURGERY PT WILL BE ADVANCED TO CLEAR LIQUID DIET. BEAR CATHETER FLOWING TO GRAVITY IN PLACE. URINE YELLOW AND CLOUDY. REDDENING TO SACRAL AREA. BRUISING TO LEFT BUTTOCKS. SKIN INTACT. BED LOCKED IN LOWEST POSITION. CALL LIGHT WITHIN REACH. SAFETY PRECAUTIONS IN PLACE. WILL CONTINUE TO MONITOR.
--- NOTE | 2019-08-23 19:25 | NUR ---
Endorsement given to Milagros JOVEL using SBAR.
[2019-08-23] MEDS: ATORVASTATIN 20 MG TABLET PO SCH (20:34)
[2019-08-24] VITALS (21 sets, daily range): BP systolic 96–149
[2019-08-24 05:33] LABS: BASOPHILS % (AUTO) 0.2 % (0.0-2.0); EOSINOPHILS # (AUTO) 0.1 K/uL (0.0-0.4); EOSINOPHILS % (AUTO) 0.3 % (0.0-4.0); HEMATOCRIT 30.8 % (36-54); LYMPHOCYTES # (AUTO) 0.4 K/uL (1.0-5.5); LYMPHOCYTES % (AUTO) 2.7 % (20.5-51.5); MEAN CORPUSCULAR HEMOGLOBIN 30 pg (27-31); MEAN CORPUSCULAR HGB CONC 32 % (32-36); MEAN CORPUSCULAR VOLUME 93 fL (79.0-98.0); MONOCYTES % (AUTO) 5.9 % (1.7-9.3); NEUTROPHILS # (AUTO) 14.8 K/uL (1.8-7.7); NEUTROPHILS % (AUTO) 90.9 % (40.0-70.0); PLATELET COUNT (AUTO) 107 K/uL (130-430); RED BLOOD CELL COUNT(AUTO) 3.33 MIL/uL (4.2-6.2); RED CELL DISTRIBUTION WIDTH 15.5 % (9.0-15.0); WHITE BLOOD COUNT (AUTO) 16.3 K/uL (4.8-10.8)
[2019-08-24 05:50] LABS: ALANINE AMINOTRANSFERASE 74 U/L (12-78); ANION GAP 12 (5-15); ASPARTATE AMINOTRANSFERASE 44 U/L (10-37); CALCIUM 8.3 mg/dL (8.4-11.0); CHLORIDE 110 mmol/L (98-107); CREATININE 3.27 mg/dL (0.55-1.30); GLUCOSE 114 mg/dL (70-99); PHOSPHORUS 3.5 mg/dL (2.7-4.5); POTASSIUM 3.8 mmol/L (3.5-5.1); SODIUM SERUM 141 mmol/L (136-145); TOTAL BILIRUBIN 0.5 mg/dL (0.0-1.0); UREA NITROGEN, BLOOD 72 mg/dL (8-21)
[2019-08-24 06:05] LABS: C-REACTIVE PROTEIN QUANT 14.4 mg/dL (0-0.5)
[2019-08-24 06:25] LABS: ERYTHROCYTE SEDIMENTATION RATE 102 MM/HR (0-15)
--- NOTE | 2019-08-24 07:15 | NUR ---
Opening Note Received bedside report from endorsing RN for continuation of care. Received patient awake and resting in bed, denies any SOB or pain. No signs or symptoms of acute distress noted. Bed locked in lowest position, bed alarm on, and call light within reach. Fall and safety precautions in place.
--- NOTE | 2019-08-24 07:30 | NUR ---
Dr. Jimenez at bedside examining patient. No new orders.
[2019-08-24] MEDS: amLODIPine BESYLATE 5 MG TABLET PO SCH (08:36)
[2019-08-24] MEDS: ASPIRIN 81 MG TABLET(ECOTRIN) PO SCH (08:36)
[2019-08-24] MEDS: MEROPENEM 500 MG IVPB PREMIX 50 ML IV SCH ×2 (08:36→21:44)
[2019-08-24] MEDS: METOPROLOL TARTRATE 25 MG TABLET PO SCH ×2 (08:36→21:34)
--- NOTE | 2019-08-24 08:48 | NUR ---
Paged Dr. Rodriguez for orders. Spoke with exchange.
[2019-08-24] MEDS: TAMSULOSIN HCL 0.4 MG CAP PO SCH ×2 (09:00→09:54)
--- NOTE | 2019-08-24 09:20 | NUR ---
Code status changed DNR Dr. Yuan and pt discussing pt's wish to be DNR and comfortable without aggressive measures. Signed and placed in chart.
--- NOTE | 2019-08-24 09:26 | NUR ---
Dr. Yuan at bedside examining patient. New orders received. Addendum: 08/24/19 at 0926 by Berna Fields RN No new orders.
[2019-08-24] MEDS: TAMSULOSIN HCL 0.4 MG CAP PO ONE ×2 (09:54→09:59)
--- NOTE | 2019-08-24 11:46 | NUR ---
Dr. Rodriguez at bedside examining patient. New orders received.
--- NOTE | 2019-08-24 13:25 | NUR ---
Dr. Leiva at bedside examining patient. No new orders.
--- NOTE | 2019-08-24 14:55 | NUR ---
Flexboard Operator: Received Dr. Walton orders for hospice eval. for a [facility] pt. in ICU3. SPEECH LANGUAGE PATHOLOGIST PRN called and left a message for both HCP CMs' Kandi- [phone] and Roman at [phone]. Both CMs have not called SPEECH LANGUAGE PATHOLOGIST PRN back. SPEECH LANGUAGE PATHOLOGIST PRN met with the family briefly and shared some hospice resources including [facility]. SPEECH LANGUAGE PATHOLOGIST PRN explained to them someone from HCP will be giving them a call and confirmed their contact info. SPEECH LANGUAGE PATHOLOGIST PRN called both HCP CM and left the contact info. SPEECH LANGUAGE PATHOLOGIST PRN will remain available as needed.
--- NOTE | 2019-08-24 15:15 | NUR ---
Dr. Kang at bedside examining patient. No new orders.
[2019-08-24] MEDS: NACL 0.9% 1,000 ML IV SCH (15:25)
--- NOTE | 2019-08-24 18:44 | NUR ---
Transfer to Telemetry Patient transferred to telemetry unit room 101-A on continuous monitoring analyst and oxygen using ACLS protocol. ACLS RN present at all times. No signs or symptoms of acute distress noted. Endorsed bedside report to Emely BONE RN using SBAR approach for continuation of care.
--- NOTE | 2019-08-24 19:04 | NUR ---
[facility] INITIAL ADMISSION NOTES RECEIVED PATIENT FROM ICU TRANSFER FROM [facility] , PLACED IN BED , ALERT , VERBALLY RESPONSIVE AND ABLE TO ANSWER QUESTION , MADE COMFORTABLE WITH IV INFUSING TO LEELA PICC LINE X 2 LUMEN , INTACT NO SIGN OF BLEEDING , WITH BEAR CATH INTACT DRAINING WITH YELLOW URINE OUTPUT, PATIENT ADMINISTERED WITH O2 VIA NC AND PATIENT DENIES ANY PAIN AT THIS TIME AND AWARE OF HIS CONDITION , ENDORSED TO DOOR TO DOOR SELLING DISTRIBUTOR PATIENT HAD SIGNED DNR, AND FAMILY IS OK TO VISIT TOMORROW , WILL CONT CARE Addendum: 08/24/19 at 1910 by Emely Galindo RN ENDORSED TO [facility] WITH STABLE CONDITION
--- NOTE | 2019-08-24 20:00 | NUR ---
AWAKE, ALERT. CONFUSED AT TIMES. ONO2 AT 2L/MIN/NC. WHEEZING NOTED. SEEMS ANXIOUS AND AFRAID, THINKS HE MIGHT FALL. SIDE RAILS UP, CALL LIGHTS WITHIN REACH, REASSURED, ENCOURAGED TO VERBALIZE FEELINGS. MONITORED CLOSELY.
--- NOTE | 2019-08-24 21:00 | NUR ---
BOUTS OF CONFUSION. REORIENTED TO REALITY. SCARED. REASSURED. ACCU-CHEK 137, NO INSULIN DUE PER SLIDING SCALE COV. TRANSFERRED TO ROOM 105-A, NEARER TO NURSING STATION.
[2019-08-24] MEDS: ATORVASTATIN 20 MG TABLET PO SCH (21:35)
[2019-08-24] MEDS: INSULIN REGULAR, HUMAN 100 UNITS/ML, 10 ML VIAL (humuLIN R) SUBCUT PRN (21:47)
--- NOTE | 2019-08-25 00:30 | NUR ---
DOZES ON AND OFF. 1 MODERATE WATERY BROWNISH STOOL DEFECATED. CLEANED. VANDANA-CARE, BACK CARE, SKIN CARE RENDERED. PARTIAL LINEN CHANGE. MINIMAL ASSIST WITH TURNING. FIDEL WELL.
[2019-08-25] MEDS: NACL 0.9% 1,000 ML IV SCH ×2 (01:09→21:50)
--- NOTE | 2019-08-25 04:45 | NUR ---
wants to get out of bed. explained that it is not a good idea at this time. 1 mod watery brown stool defcated, cleaned. mamie-care given. z-guard applied to perineum. partial linen change. assists with turning. chas proc well.
[2019-08-25] MEDS: INSULIN REGULAR, HUMAN 100 UNITS/ML, 10 ML VIAL (humuLIN R) SUBCUT PRN (06:17)
--- NOTE | 2019-08-25 07:02 | NUR ---
Nutrition Update Dieudonne Scale 16 noted. Pt admitted for UTI, back pain Diet: Clear liquid BMI: 27.8 kg/m2 RD to follow per nutrition care standards.
[2019-08-25 07:04] LABS: BASOPHILS % (AUTO) 0.2 % (0.0-2.0); EOSINOPHILS % (AUTO) 0.1 % (0.0-4.0); HEMATOCRIT 31.6 % (36-54); HEMOGLOBIN 10.2 g/dL (14.0-18.0); LYMPHOCYTES # (AUTO) 0.3 K/uL (1.0-5.5); LYMPHOCYTES % (AUTO) 1.9 % (20.5-51.5); MEAN CORPUSCULAR HEMOGLOBIN 30 pg (27-31); MEAN CORPUSCULAR HGB CONC 32 % (32-36); MEAN CORPUSCULAR VOLUME 93 fL (79.0-98.0); MONOCYTES # (AUTO) 1.3 K/uL (0.0-1.0); MONOCYTES % (AUTO) 7.4 % (1.7-9.3); NEUTROPHILS # (AUTO) 16.4 K/uL (1.8-7.7); NEUTROPHILS % (AUTO) 90.4 % (40.0-70.0); PLATELET COUNT (AUTO) 94 K/uL (130-430); RED BLOOD CELL COUNT(AUTO) 3.39 MIL/uL (4.2-6.2); RED CELL DISTRIBUTION WIDTH 15.6 % (9.0-15.0); WHITE BLOOD COUNT (AUTO) 18.1 K/uL (4.8-10.8)
[2019-08-25 07:08] LABS: ALANINE AMINOTRANSFERASE 69 U/L (12-78); ALBUMIN 2.1 g/dL (3.4-4.8); ANION GAP 14 (5-15); ASPARTATE AMINOTRANSFERASE 45 U/L (10-37); C-REACTIVE PROTEIN QUANT 10.3 mg/dL (0-0.5); CHLORIDE 110 mmol/L (98-107); CREATININE 2.97 mg/dL (0.55-1.30); GLUCOSE 130 mg/dL (70-99); PHOSPHORUS 3.5 mg/dL (2.7-4.5); POTASSIUM 3.6 mmol/L (3.5-5.1); SODIUM SERUM 145 mmol/L (136-145); TOTAL BILIRUBIN 0.7 mg/dL (0.0-1.0); UREA NITROGEN, BLOOD 67 mg/dL (8-21)
[2019-08-25 07:48] VITALS: BP_SYST 111
[2019-08-25 08:00] VITALS: BP_SYST 111
--- NOTE | 2019-08-25 08:00 | NUR ---
INITIAL NOTES Awake, lying in bed. Oriented to person time and place. Blood pressure is stable at this time. Eats breakfast. IVF is infusing well. Minimal swelling on both legs. Redness noted on sacral area but skin is intact. Updated with plan of care. Safety and fall precautions in place. Will monitor.
[2019-08-25] MEDS: MEROPENEM 500 MG IVPB PREMIX 50 ML IV SCH ×2 (08:16→21:49)
[2019-08-25] MEDS: TAMSULOSIN HCL 0.4 MG CAP PO SCH (08:17)
[2019-08-25] MEDS: ASPIRIN 81 MG TABLET(ECOTRIN) PO SCH (08:18)
[2019-08-25] MEDS: METOPROLOL TARTRATE 25 MG TABLET PO SCH ×2 (08:18→21:49)
[2019-08-25] MEDS: amLODIPine BESYLATE 5 MG TABLET PO SCH (09:00)
[2019-08-25 09:34] LABS: ERYTHROCYTE SEDIMENTATION RATE 95 MM/HR (0-15)
--- NOTE | 2019-08-25 10:30 | NUR ---
CXRAY Patient initially refused to have chest x-ray. Finally agreed after speaking to family member.
--- NOTE | 2019-08-25 11:36 | NUR ---
BOWEL MOVEMENT Soft medium bowel movement noted. Cleaned and repositioned. Denies any pain. No shortness of breath.
[2019-08-25 12:00] VITALS: BP_SYST 107
--- NOTE | 2019-08-25 12:20 | NUR ---
Blood culture- pt refusing blood draw at this time. Instructed patient the importance of drawing blood, but still refusing. Will try again later.
--- NOTE | 2019-08-25 12:32 | NUR ---
Dr. prieto made aware that patient is refusing blood culture draw.
--- NOTE | 2019-08-25 12:43 | NUR ---
Nutrition F/U RD reviewed pt's current EMR including diet Hx, physician notes, nursing notes, pertinent labs/meds/procedures, care trends and care activity. Current Diet Order: Clear liquid diet Subjective information: Per RN report, pt is awake and alert, tolerated food items in clear liquid diet except for the jello. Pending swallow eval and hospice eval. Last BM 08/24 x 3. Per MD notes, family does not want intervention for renal stone. Per EMR, PO intake 10-25% of meals. +Septicemia, ID following. BG trending up. Labs: 08/24 Na 145WNL, K 3.6WNL, BG 130H, POC BG 134H, BUN 67H, CRE 2.97H Current PO intake: 10-25% of meals Estimated Energy Expenditure (kcals/day) 3543-6574 kcal/day (MSJ x 1.2-1.5 CBW for sepsis) Estimated Protein Required (g/day) 132-176 gm/day (1.5-2 gm/kg CBW for sepsis) Estimated Fluid Required (l/day) 2.2-2.6 L/day (25-30 ml/kg CBW for geriatric maintenance) Problem/Etiology/Signs/Symptoms Increased nutritional needs related to metabolic demands as evidenced by elevated WBC lab value and estimated nutritional requirements for sepsis. *ongoing Altered nutrition-related labs r/t endocrine and renal dysfunction AEB elevated BG, POC BG, BUN and SCre lab values. (*new 08/25/2019) Expected Outcomes/Goals - Monitor advancement of diet, appetite and PO intakes w/ goal of pt meeting at least 75% of estimated nutritional needs, labs trending WNL, normal GI function, and skin integrity/wt maintenance Dietitian Recommendations * Continue clear liquid diet per FREIGHT HANDLER. * Awaiting swallow re-eval. * Advance diet if/when medically appropriate per FREIGHT HANDLER after re-eval. Follow Up High Risk: F/U in 2-3days
--- NOTE | 2019-08-25 12:52 | NUR ---
Dietitian Recommendations * Continue clear liquid diet per SECURITY ASSISTANT. * Awaiting swallow re-eval. * Advance diet if/when medically appropriate per SECURITY ASSISTANT after re-eval. Please see Nutrition F/U note for details. LAKESHA ALVARADO
--- NOTE | 2019-08-25 15:00 | NUR ---
Asleep. Family at bedside. Son wants to know about possible transfer to hospice. Will call behavioral health case manager.
--- NOTE | 2019-08-25 15:14 | NUR ---
Called Health Admissions Representative therapeutic case manager Kandi about update of hospice eval. Left voicemail.
--- NOTE | 2019-08-25 15:50 | NUR ---
Spoke to Kandi from [facility]. Said that she is not the sample case porter environmental air specialist today. Said to call number [phone]. Left voicemail. Patient's son is aware.
--- NOTE | 2019-08-25 16:26 | NUR ---
4:36pm: Spoke with Amarilis from [facility] and confirmed receiving fax. States that a nurse will be able to evaluate pt around 5pm, dtr-in-law aware. Also, requesting for recent Progress notes to be faxed, Ida Black RN aware. 4:11pm: Spoke to [facility] regarding faxing over to [facility] documents needed. Dtr-in-law aware. 3:55pm: Spoke with Jennifer and stated that they do not want pt to go to a SNF and would want pt to go under [facility]. Called [facility] and gave fax number [phone]. 1:45pm: Left Preston, son, and Jennifer, dtr-in-law, to return call regarding d/c plan for pt. Awaiting for call back.
[2019-08-25 16:31] VITALS: BP_SYST 109
--- NOTE | 2019-08-25 16:51 | NUR ---
Faxed needed documents to Joan at [phone].
--- NOTE | 2019-08-25 18:21 | NUR ---
CLOSING NOTES Awake, lying in bed. Eats dinner. Family at bedside. IVF infusing well. Denies any shortness of breath or pain. All needs met throughout shift. Still waiting for hospice nurse to come and evaluate patient. Will endorse.
--- NOTE | 2019-08-25 19:20 | NUR ---
OPENING NOTE RECEIVED REPORT FROM DANIAL RN, PATIENT IS RESTING IN BED, A/OX3, FAMILY AT BEDSIDE, NO SIGNS OF ACUTE DISTRESS, EVEN AND UNLABORED BREATHING ON 2L NC, NO COMPLAINTS OF PAIN, PICC TO RIGHT UPPER ARM INTACT, INFUSING NS @50ML/HR, PATENT/BENIGN, BEAR CATHETER IN PLACE AND DRAINING TO GRAVITY. SAFETY, FALL AND ASPIRATION PRECAUTIONS IN PLACE, CONTACT ISOLATION PRECAUTIONS IN PLACE, BED LOCKED AND IN LOWEST POSITION, BED ALARM ON, THREE SIDE RAILS UP, BED CLOSE TO NURSING STATION, CALL LIGHT WITH PATIENT, WILL CONTINUE TO MONITOR.
--- NOTE | 2019-08-25 19:50 | NUR ---
HOSPICE NURSE AT BEDSIDE HOSPICE NURSE MARCIO AT BEDSIDE EVALUATING AND DISCUSSING CARE WITH PATIENT'S DAUGHTER IN LAW. MARCIO MADE AWARE OF PATIENT'S STATUS AND AGREED PATIENT MAY GO TO [facility], SHE VERBALIZED PATIENT MAY BE TRANSFERRED AT 10AM PENDING [facility] AMBULANCE AVAILABILITY. SHE ALSO VERBALIZED IF PATIENT CAN BE TRANSFERRED WITH PICC LINE HEP LOCK AND BEAR CATHETER IN PLACE. WILL NOTIFY ATTENDING MD.
[2019-08-25 20:00] VITALS: BP_SYST 130
[2019-08-25] MEDS: ATORVASTATIN 20 MG TABLET PO SCH (21:49)
--- NOTE | 2019-08-25 21:52 | NUR ---
BLOOD SUGAR PATIENT'S BLOOD SUGAR IS 149. NO INSULIN COVERAGE INDICATED PER INSULIN SLIDING SCALE AT THIS TIME. ALL SAFETY PRECAUTIONS IN PLACE, CALL LIGHT WITH PATIENT, BED CLOSE TO NURSING STATION, CONTACT ISOLATION PRECAUTIONS IN PLACE, WILL CONTINUE TO MONITOR.
[2019-08-26 00:17] VITALS: BP_SYST 132
--- NOTE | 2019-08-26 00:22 | NUR ---
SPOKE WITH MARCIO FROM [facility] SPOKE WITH MARCIO FROM [facility], SHE CONFIRMED [facility] AMBULANCE IS AVAILABLE TO TRANSFER PATIENT TO THEIR FACILITY AT 10AM, 08/26/19. SHE VERBALIZED THIS RN OR DAYSHIFT RN SHOULD CALL REPORT TO INPATIENT UNIT IN THE AM .
--- NOTE | 2019-08-26 02:11 | NUR ---
RN ROUNDS PATIENT IS RESTING IN BED, EYES CLOSED, NO SIGNS OF ACUTE DISTRESS, TOLERATING 2L NC, NO COMPLAINTS OF PAIN, PICC TO RIGHT UPPER ARM INTACT, INFUSING WELL, BEAR CATHETER IN PLACE AND DRAINING TO GRAVITY. SAFETY, FALL AND ASPIRATION PRECAUTIONS IN PLACE, CONTACT ISOLATION PRECAUTIONS IN PLACE, BED CLOSE TO NURSING STATION, CALL LIGHT WITH PATIENT, WILL CONTINUE TO MONITOR.
--- NOTE | 2019-08-26 04:57 | NUR ---
INCONTINENCE CARE PATIENT HAD A SMALL LOOSE BM. INCONTINENCE CARE RENDERED BY THIS RN AND JEMMA HODGE. PATIENT IS CLEAN, DRY AND REPOSITIONED. SAFETY, FALL AND ASPIRATION PRECAUTIONS IN PLACE, CONTACT ISOLATION PRECAUTIONS IN PLACE, BED CLOSE TO NURSING STATION, CALL LIGHT WITH PATIENT, WILL CONTINUE TO MONITOR.
--- NOTE | 2019-08-26 06:19 | NUR ---
BLOOD SUGAR PATIENT'S BLOOD SUGAR IS 134. NO INSULIN COVERAGE INDICATED PER INSULIN SLIDING SCALE AT THIS TIME. ALL SAFETY PRECAUTIONS IN PLACE, CALL LIGHT WITH PATIENT, BED CLOSE TO NURSING STATION, CONTACT ISOLATION PRECAUTIONS IN PLACE, WILL CONTINUE TO MONITOR.
--- NOTE | 2019-08-26 06:37 | NUR ---
MD SILVINA HUERTA CALLED AT SPOKE WITH DR.KANGARLU FADY DIECAST MACHINE OPERATOR.
--- NOTE | 2019-08-26 06:45 | NUR ---
CLOSING NOTE PATIENT IS RESTING IN BED, NO SIGNS OF ACUTE DISTRESS, TOLERATING 2L NC, NO COMPLAINTS OF PAIN, PICC TO RIGHT UPPER ARM INTACT, INFUSING NS @50ML/HR, PATENT/BENIGN, BEAR CATHETER IN PLACE AND DRAINING TO GRAVITY. SAFETY, FALL AND ASPIRATION PRECAUTIONS IN PLACE, CONTACT ISOLATION PRECAUTIONS IN PLACE, BED LOCKED AND IN LOWEST POSITION, BED ALARM ON, THREE SIDE RAILS UP, BED CLOSE TO NURSING STATION, CALL LIGHT WITH PATIENT, WILL ENDORSE CARE TO DAYSHIFT RN.
[2019-08-26 08:13] VITALS: BP_SYST 11; BP_SYST 111
--- NOTE | 2019-08-26 08:15 | NUR ---
am rounds: Patient is oriented x4. On oxygen at 2 li/min with 98% saturation. Denies pain. IV fluids of NS at 50cc/hr infusing of the right upper arm PICC line. Both ports flushes well with blood return. Pablo cather with yellow urine output to a bedside drainage bag. On contact isolation for EBSL/MDRO urine. Repositioned to the right. Assisted with breakfast. Call light within reach. Addendum: 08/26/19 at 0843 by Alessandra He RN above documentation is for another patient
--- NOTE | 2019-08-26 09:09 | NUR ---
2ND PAGE OUT TO MD HUERTA CALLED AT SPOKE WITH DR.JANDIAL MCCOY RAJNISH TEST CASE DEVELOPER.
[2019-08-26 09:10] VITALS: BP_SYST 98
--- NOTE | 2019-08-26 09:20 | NUR ---
Report: Report given to Donna Schroeder LVN. Patient is going to room 108.
[2019-08-26] MEDS: TAMSULOSIN HCL 0.4 MG CAP PO SCH (09:36)
[2019-08-26] MEDS: MEROPENEM 500 MG IVPB PREMIX 50 ML IV SCH (09:36)
[2019-08-26] MEDS: ASPIRIN 81 MG TABLET(ECOTRIN) PO SCH (09:37)
[2019-08-26] MEDS: METOPROLOL TARTRATE 25 MG TABLET PO SCH (09:37)
--- NOTE | 2019-08-26 10:39 | NUR ---
DISCHARGE: Discharged to [facility] hospice with [facility]. All belongings were released to Jennifer ([id number]). Foleycath and PICC line kept .
== END 2019-08-26 10:20 | disposition hospice, inpatient (51) | DRG 871 ==
LOC: SED 14:54 → SMU 20:25 → SIC 08-20 15:56 → STU 08-24 19:00
PROVIDERS: ADMIT Internal Medicine; ATTEND Internal Medicine
PROC: 02HV33Z Insertion of Infusion Device into Superior Vena Cava, Percutaneous Approach (ICD-10-PCS; principal; 2019-08-22)
PROC: B548ZZA Ultrasonography of Superior Vena Cava, Guidance (ICD-10-PCS; 2019-08-22)
DX: A41.51 Sepsis due to Escherichia coli [E. coli] (principal); R65.21 Severe sepsis with septic shock; J18.9 Pneumonia, unspecified organism; N17.0 Acute kidney failure with tubular necrosis; J96.01 Acute respiratory failure with hypoxia; G93.40 Encephalopathy, unspecified; I42.9 Cardiomyopathy, unspecified; N13.6 Pyonephrosis; I12.9 Hypertensive chronic kidney disease with stage 1 through stage 4 chronic kidney disease, or unspecified chronic kidney disease; E11.22 Type 2 diabetes mellitus with diabetic chronic kidney disease; N18.9 Chronic kidney disease, unspecified; M54.9 Dorsalgia, unspecified; Z96.642 Presence of left artificial hip joint; R29.6 Repeated falls; Z66 Do not resuscitate; E78.5 Hyperlipidemia, unspecified; I25.10 Atherosclerotic heart disease of native coronary artery without angina pectoris; I25.2 Old myocardial infarction; Z95.0 Presence of cardiac pacemaker; Z83.3 Family history of diabetes mellitus; Z79.82 Long term (current) use of aspirin; Z79.899 Other long term (current) drug therapy
CPT/HCPCS: 36415; 71045; 72100-TC; 76770; 80048; 80053; 81000-TC; 82962; 83605; 83735-TC; 84100-TC; 85007; 85025; 85027; 85610-TC; 85651-TC; 85730-TC; 86140; 87040-TC; 87081; 87086; 87186-TC; 92610-GN; 93005; 93306; 94010; 94640; 94760; 96361; 96365; 99285; C1751; G0378; J0696; J1815; J1956; J2185; J2405; J2543; J3370; J7030; J7050; J7060; J7613; P9041